=== PATIENT | female | born 1955 | race Caucasian/White ===

== ENCOUNTER 2017-07-16 18:29 | Emergency (ER) | payer OTHER ==
[~2017-07-16] VITALS: Ht 167.6 cm; Wt 83.9 kg
[~2017-07-16 18:29] MED LIST: APAP/CODEINE 301 TAB PO; ATENOLOL50 MG PO; AUGMENTIN 875 M1 TAB PO; NORVASC 5MG TAB5 MG PO
--- NOTE | 2017-07-16 19:09 | ED CARDIAC/CP/PALPITATIONS ---
History of Present Illness General Chief Complaint: Chest Pain Stated Complaint: CHEST PAIN X 30MIN Source: patient Exam Limitations: no limitations Vital Signs & Intake/Output Vital Signs & Intake/Output Vital Signs Date Time Temp Pulse Resp B/P B/P Pulse O2 O2 Flow FiO2 Mean Ox Delivery Rate 07/16 2233 98.3 84 18 163/76 95 Room Air 07/16 1902 97 Room Air 07/16 1842 96.0 92 18 166/90 100 Room Air Room Air Allergies Coded Allergies: NO KNOWN ALLERGIES (12/12/12) Reconcile Medications Acetaminophen With Codeine (Acetaminophen-Cod #3 Tablet) 300 MG-30 MG TABLET 1 -2 TAB PO Q4-6H PRN PAIN (Reported) Acetaminophen/Diphenhydramine (Acetaminophen Pm Geltab) 500 MG-25 MG TABLET 3 CAP PO QPM SLEEP (Reported) Amlodipine Besylate 5 MG TABLET 1 TAB PO DAILY BP (Reported) Multiple Vitamin (Multivitamins) 1 EACH TABLET 1 TAB PO DAILY SUPPLEMENT ( Reported) Sodium Chloride (Summers) 0.65 % SPRAY 1-2 SPRAY NASB AD PRN MASAL DRYNESS ( Reported) Triage Note: PT TO ED WITH C/O MID-STERNAL CHEST PAIN RADIATING TO 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 EKG DONE AND BLOODWORK DONE IN [place] PRIOR TO TRIAGE. DR MIGUEL IN TRIAGE FOR EVAL. Triage Nurses Notes Reviewed? yes Onset: Abrupt Duration: minute(s): Timing: recent history Quality/Severity: severe, pressure Location: substernal Radiation: right shoulder Activities at Onset: rest HPI: 62-year-old female with history of hypertension presents emergency department complaining of episode of chest pain while at work today. Patient states that she was sitting at her computer when she felt abrupt onset substernal chest pain described as pressure, 10/10, radiating to right shoulder. Patient states that prior to onset she felt diaphoresis and nausea. During episode of chest pain patient had dyspnea. This episode lasted for minutes. Patient states that chest pain has improved, currently 1/10. Patient's other symptoms have resolved as well. Patient drove herself to the hospital. She has never had a similar chest pain in the past. 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 The patient denies syncope, head trauma, abdominal pain, vomiting, headache, recent travel, hemoptysis, leg swelling. (Debra Calderon) Past History Travel History Traveled to [place] past 21 day No Medical History Any Pertinent Medical History? see below for history Neurological: NONE EENT: NONE Cardiovascular: hypertension Respiratory: NONE Gastrointestinal: NONE Hepatic: NONE Renal: NONE Musculoskeletal: NONE Psychiatric: NONE Endocrine: NONE Blood Disorders: NONE Cancer(s): NONE CATERING ATTENDANT/Reproductive: NONE Surgical History Surgical History: non-contributory Psychosocial History What is your primary language British Tobacco Use: Never used ETOH Use: denies use Illicit Drug Use: denies illicit drug use Family History Hx Contributory? No (Debra Calderon) Review of Systems Review of Systems Constitutional: Reports: no symptoms. EENTM: Reports: no symptoms. Respiratory: Reports: see HPI. Cardiovascular: Reports: see HPI. GI: Reports: see HPI. Genitourinary: Reports: no symptoms. Musculoskeletal: Reports: no symptoms. Skin: Reports: no symptoms. Neurological/Psychological: Reports: no symptoms. Hematologic/Endocrine: Reports: no symptoms. Immunologic/Allergic: Reports: no symptoms. All Other Systems: Reviewed and Negative (Debra Calderon) Physical Exam Physical Exam General Appearance: well developed/nourished, no apparent distress, alert, awake Head: atraumatic, normal appearance Eyes: Bilateral: normal appearance. Ears, Nose, Throat: hearing grossly normal Neck: normal inspection, supple, full range of motion Respiratory: normal breath sounds, chest non-tender, no respiratory distress, lungs clear Cardiovascular: regular rate/rhythm Peripheral Pulses: 2+ radial (R), 2+ radial (L) Gastrointestinal: normal bowel sounds, soft, non-tender, no organomegaly Back: normal inspection, normal range of motion Extremities: normal inspection, normal range of motion, no edema Neurologic/Psych: awake, alert, oriented x 3 Skin: intact, normal color, warm/dry Core Measures ACS in differential dx? Yes CVA/TIA Diagnosis No Sepsis Present: No Sepsis Focused Exam Completed? No (Debra Calderon) Progress Differential Diagnosis: AMI, atrial fibrillation, CHF/pulm edema, costochondritis, musculoskeletal pain, myocarditis, pericarditis, pneumonia, pneumothorax, PSVT, pulmonary embolism, unstable angina Plan of Care: Orders Procedure Date/time Status TROPONIN LEVEL 07/16 2144 Complete EKG 07/16 2144 Active TROPONIN LEVEL 07/16 1843 Complete LIPASE 07/16 1843 Complete COMPREHENSIVE METABOLIC PANEL 07/16 1843 Complete CBC WITHOUT DIFFERENTIAL 07/16 1843 Complete EKG 07/16 183 Active Laboratory Tests 07/16/172141: Troponin I < 0.01 07/16/171845: Anion Gap 12, Estimated GFR > 60, BUN/Creatinine Ratio 12.9, Glucose 138 H, Calcium 9.8, Total Bilirubin 0.5, AST 19, ALT 36, Alkaline Phosphatase 102, Troponin I < 0.01, Total Protein 7.6, Albumin 4.5, Globulin 3.1, Albumin/ Globulin Ratio 1.5, Lipase 228, CBC w Diff NO MAN DIFF REQ, RBC 4.91, MCV 84.9, MCH 28.9, MCHC 34.1, RDW 13.1, MPV 7.3 L, Gran % 68.3, Lymphocytes % 22.5, Monocytes % 6.5, Eosinophils % 2.2, Basophils % 0.5, Absolute Granulocytes 3.7, Absolute Lymphocytes 1.2, Absolute Monocytes 0.4, Absolute Eosinophils 0.1, Absolute Basophils 0 Patient's EKG shows mild nonspecific lateral ST depressions, less than 1 mm. troponin is negative. Will obtain repeat EKG and troponin. Upon arrival patient reports her chest pain is 1/10. Repeat EKG is in sinus rhythm, no acute changes. Second troponin is negative. Patient is currently chest pain-free, without symptoms at this time, she feels comfortable. Spoke with Dr. Fonseca regarding this patient - I discussed the patient's EKGs and blood work. He recommends that given no active chest pain currently will maintain close follow-up as an outpatient in the office. Dr. Swain agrees with this plan. The patient is in no acute distress, laying comfortably in stretcher, sleeping while awaiting for results. The patient's vital signs are stable. Patient to follow-up with Dr. Fonseca. The patient agrees with the plan of care. Diagnostic Imaging: Viewed by Me: Radiology Read. Discussed w/RAD: Radiology Read. Initial ED EKG: sinus rhythm @94bpm, nonspecific ST changes lateral leads Prior EKG: changed (very slight changes lat leads) Repeat EKG: unchanged (Lyndsey FLORES,Debra Monroy) Departure Departure Disposition: STILL A PATIENT Condition: Stable Clinical Impression Primary Impression: Chest pain Referrals: Marcello FALCON,Tena (PCP/Family) Raymundo FALCON PHD,Jose A Devries Additional Instructions: As discussed, follow-up with Dr. Fonseca, call the office to make an appointment for this week. Return with any worsening symptoms or concerns such as chest pain, shortness of breath, feeling faint, passing out. Please note that there might be incidental findings in your evaluation that are unrelated to the current emergency department visit. Please notify your primary care doctor about this emergency department visit in order to obtain and review all of the testing performed so that these incidental findings can be monitored as needed. If you had an x-ray performed, please understand that some fractures may not be seen on the initial set of x-rays. If your symptoms persist you might need a repeat set of x-rays to check for such a fracture. If you had a laceration evaluated, please understand that foreign bodies such as glass or wood may not be visible to the naked eye or on plain x-rays. If the wound becomes red, swollen, increasingly more painful or if there is any drainage from the wound, please have it reevaluated by a physician for the possibility of a retained foreign body. If you're unable to follow up as outlined in the discharge instructions please return to the emergency department. Thank you for choosing the [facility] Emergency Department for your care. It was a pleasure to serve you today. Departure Forms: Customer Survey General Discharge Information (Debra Calderon) PA/PILLOWCASE FOLDER Co-Sign Statement Statement: ED Attending supervision documentation- [] I saw and evaluated the patient. I have also reviewed all the pertinent lab results and diagnostic results. I agree with the findings and the plan of care as documented in the PA's/PILLOWCASE FOLDER's documentation. [x] I have reviewed the ED Record and agree with the PA's/PILLOWCASE FOLDER's documentation. [] Additions or exceptions (if any) to the PAs/PILLOWCASE FOLDER's note and plan are summarized below: [] (Brynn FALCON,Donald Nguyen) Critical Care Note Critical Care Note Critical Care Time: non-applicable (Debra Calderon)
[2017-07-16 19:14] LABS: ABSOLUTE BASOPHIL COUNT 0 /CUMM (0.0-0.2); ABSOLUTE EOSINOPHIL COUNT 0.1 /CUMM (0.0-0.7); ABSOLUTE GRANULOCYTE CT 3.7 /CUMM (1.4-6.5); ABSOLUTE LYMPH COUNT 1.2 /CUMM (1.2-3.4); ABSOLUTE MONOCYTE COUNT 0.4 /CUMM (0.10-0.60); BASOPHIL % 0.5 % (0.0-2.0); EOSINOPHIL % 2.2 % (0-5); GRANULOCYTE % 68.3 % (42.2-75.2); HEMATOCRIT 41.7 % (37-47); MEAN CORPUSCULAR HGB 28.9 PG (27.0-31.0); MEAN CORPUSCULAR HGB CONC 34.1 G/DL (33.0-37.0); MEAN CORPUSCULAR VOLUME 84.9 FL (81.0-99.0); MEAN PLATELET VOLUME 7.3 FL (7.4-10.4); PLATELET COUNT 252 /CUMM (130-400); RBC DISTRIBUTION WIDTH 13.1 % (11.5-14.5); RED BLOOD CELL CT 4.91 /CUMM (4.20-5.40); WHITE BLOOD CELL COUNT 5.4 /CUMM (4.8-10.8)
--- NOTE | 2017-07-16 20:15 | RADIOLOGY REPORT ---
EXAMINATION: XR CHEST CLINICAL INFORMATION: Chest pain. Dyspnea. COMPARISON: Chest x-ray 05/26/2014 TECHNIQUE: 2 views of the chest were obtained. FINDINGS: Lungs are clear. No pulmonary vascular congestion. There is no pleural effusion. The heart size is normal. The cardiac and mediastinal contours are normal. There are calcifications of the thoracic aorta. There are multilevel degenerative changes of dorsal spine. IMPRESSION: Unremarkable examination.
[2017-07-16] MEDS ORDERED: AMLODIPINE BESYL5 M1 PO (21:49)
[2017-07-16] MEDS ORDERED: MULTIVITAMINS1 EAC9 PO (21:49)
[2017-07-16] MEDS ORDERED: ACETAMINOPHEN-1 EAC3 PO (21:49)
[2017-07-16] MEDS ORDERED: ACETAMINOPHEN1 EAC1 PO (21:50)
[2017-07-16] MEDS ORDERED: OCEAN104 ML NASB (21:51)
[2017-07-16 22:33] VITALS: BP 163/76
== END 2017-07-16 23:07 ==
LOC: ERH 18:29
PROVIDERS: Internal Medicine
DX: R07.89 Other chest pain (principal)
CPT/HCPCS: 71046; 93005; 93010